=== PATIENT | female | born 1965 | race Caucasian/White ===

== ENCOUNTER → 2017-08-06 | Outpatient (CLI) | payer BC ==
[~2017-08-06] MED LIST: REGADENOSON 0.4 MG/5 ML DISP.SYRIN. IV
== END | disposition home or self-care (01) ==
LOC: PCVCIMAG 14:09
DX: I37.1 Nonrheumatic pulmonary valve insufficiency (principal); R06.00 Dyspnea, unspecified; R00.2 Palpitations; R07.89 Other chest pain; R60.9 Edema, unspecified
CPT/HCPCS: 78452; 93017; 93306; A9500; J2785